=== PATIENT | female | born 1935 | race Hispanic/Latino ===

== ENCOUNTER 2017-12-14 10:22 | Day surgery (SDC) | payer MEDICARE, MEDICAID ==
[~2017-12-14] VITALS: Ht 157.5 cm; Wt 89.4 kg
[~2017-12-14 10:22] MED LIST: ADVIL200 MG OR; AMLODIPINE10 MG PO; BACTRIM DS1 TAB PO; BENAZEPRIL10 MG PO; OXYCODONE/ACETA1 TAB OR; VIT B-COMPLX100 MG PO
[2017-12-14 12:29] VITALS: BP 163/84
== END 2017-12-14 12:43 | disposition home or self-care (01) ==
LOC: ENDO 10:22
PROVIDERS: ATTEND Internal Medicine Gastroenterology
PROC: 0DBK8ZX Excision of Ascending Colon, Via Natural or Artificial Opening Endoscopic, Diagnostic (ICD-10-PCS; principal; 2017-12-14)
PROC: 0DBN8ZX Excision of Sigmoid Colon, Via Natural or Artificial Opening Endoscopic, Diagnostic (ICD-10-PCS; 2017-12-14)
DX: K57.31 Diverticulosis of large intestine without perforation or abscess with bleeding (principal); K64.4 Residual hemorrhoidal skin tags; K64.8 Other hemorrhoids; K63.5 Polyp of colon; D12.2 Benign neoplasm of ascending colon; I10 Essential (primary) hypertension; Z86.010 Personal history of colon polyps

== ENCOUNTER 2018-12-29 17:43 | Emergency (ER) | payer MEDICARE, MEDICAID ==
[~2018-12-29] VITALS: Ht 157.5 cm; Wt 86.0 kg
[2018-12-29] MEDS ORDERED: LISINOPRIL20 MG PO (18:02)
[2018-12-29] MEDS ORDERED: ASPIRIN 8181 MG PO (18:03)
[2018-12-29] MEDS ORDERED: AMLODIPINE5 MG PO (18:04)
[2018-12-29] MEDS ORDERED: ATORVASTATIN CA40 MG PO (18:04)
[2018-12-29 19:20] LABS: HEMATOCRIT 34.4 % (37.0-47.0); IMMATURE GRANULOCYTES 0.4 % (0.0-5.0); MEAN CORPUSCULAR HGB 31.7 pG CALC (26.0-32.0); NEUT# 3.76 thou/uL (2.00-7.15); RED BLOOD COUNT 3.47 mill/uL (4.20-5.60); RED CELL DISTRI WIDTH 13.2 % (11.5-15.5)
[2018-12-29 19:26] LABS: MEAN CELL VOLUME 99.1 fL CALC (80.0-100.0)
[2018-12-29 19:33] LABS: ALKALINE PHOSPHATASE 88 u/l (38-126); BUN 21 mg/dL (8-23); BUN/CREATININE RATIO 29 (12-20 (CALC)); CARBON DIOXIDE 24 mmol/l (22-30); CHLORIDE 108 mmol/l (95-108); CREATININE 0.7 mg/dL (0.5-1.0); GFR > 60 ML/MIN (>=60 (CALC)); GFR FOR AFR.AMER. > 60 ML/MIN (>=60 (CALC)); SGOT/AST 32 u/l (9-36); SODIUM 139 mmol/l (137-146)
[2018-12-29 19:35] LABS: ALBUMIN 3.6 g/dL (3.2-5.0); ANION GAP 11 (6-22 (CALC)); BILIRUBIN, TOTAL 0.8 mg/dL (0.0-1.4); POTASSIUM 4.1 mmol/l (3.5-5.1)
[2018-12-29 19:53] LABS: URINE BILIRUBIN - DIPSTICK NEGATIVE (NEGATIVE); URINE BLOOD DIPSTICK NEGATIVE (NEGATIVE); URINE COLOR YELLOW; URINE GLUCOSE - DIPSTICK NEGATIVE (NEGATIVE); URINE KETONE NEGATIVE (NEGATIVE); URINE LEUK ESTERASE NEGATIVE (NEGATIVE); URINE NITRITE - DIPSTICK NEGATIVE (Negative); URINE PROTEIN - DIPSTICK NEGATIVE (NEG-TRACE)
[2018-12-29 21:40] VITALS: BP 131/65
== END 2018-12-29 21:43 | disposition home or self-care (01) ==
LOC: ED 17:43
PROVIDERS: Emergency Medicine
DX: S00.83XA Contusion of other part of head, initial encounter (principal); I10 Essential (primary) hypertension; W18.39XA Other fall on same level, initial encounter; Y93.E1 Activity, personal bathing and showering; Y92.002 Bathroom of unspecified non-institutional (private) residence as the place of occurrence of the external cause; Z86.73 Personal history of transient ischemic attack (TIA), and cerebral infarction without residual deficits

== ENCOUNTER 2019-01-07 07:10 | Observation (INO) | payer MEDICARE, MEDICAID ==
[~2019-01-07] VITALS: Ht 157.5 cm; Wt 83.5 kg
[~2019-01-07 07:10] MED LIST changes: +AMLODIPINE5 MG PO; +ASPIRIN 8181 MG PO; +ATORVASTATIN CA40 MG PO; +LISINOPRIL20 MG PO
--- NOTE | 2019-01-07 07:12 | NUR ---
PT TAKEN TO ROOM PER W/C.
--- NOTE | 2019-01-07 07:12 | NUR ---
PT TO ROOM VIA WC. ABLE TO STAND AT BEDSIDE AND TRANSFER TO BSC THEN STRETCHER W/SBA. URINE SPECIMEN COLLECTED UNABLE TO COLLECT STOOL AT THIS TIME.
[2019-01-07 07:52] LABS: HEMATOCRIT 39.7 % (37.0-47.0); HEMOGLOBIN 12.1 g/dl (12.0-16.0); IMMATURE GRANULOCYTES 0.4 % (0.0-5.0); MEAN CELL VOLUME 103.4 fL CALC (80.0-100.0); MEAN CORPUSCULAR HGB 31.5 pG CALC (26.0-32.0); MEAN CORPUSCULAR HGB CONC 30.5 g/L CALC (32.0-36.0); NEUT# 6.49 thou/uL (2.00-7.15); RED BLOOD COUNT 3.84 mill/uL (4.20-5.60); RED CELL DISTRI WIDTH 13.5 % (11.5-15.5)
[2019-01-07 07:54] LABS: URINE BILIRUBIN - DIPSTICK NEGATIVE (NEGATIVE); URINE BLOOD DIPSTICK TRACE-INTACT (NEGATIVE); URINE COLOR YELLOW; URINE GLUCOSE - DIPSTICK NEGATIVE (NEGATIVE); URINE KETONE NEGATIVE (NEGATIVE); URINE LEUK ESTERASE TRACE (NEGATIVE); URINE PH 5.5 (4.5-8.0); URINE PROTEIN - DIPSTICK 30 mg/dL (NEG-TRACE); URINE UROBILINOGEN - DIPSTICK 0.2 E.U./dL (0.2)
[2019-01-07 07:57] LABS: URINE NITRITE - DIPSTICK POSITIVE (Negative)
[2019-01-07 07:58] LABS: URINE BACTERIA MODERATE hpf; URINE EPITHELIAL CELLS FEW EPI/hpf (0-FEW); URINE RBC 0-2 RBC/hpf (0-5); URINE SQUAMOUS EPITHELIAL CELL FEW EPI/hpf (0-FEW)
[2019-01-07 08:14] LABS: ALBUMIN 4.3 g/dL (3.2-5.0); BILIRUBIN, TOTAL 0.7 mg/dL (0.0-1.4); POTASSIUM 3.3 mmol/l (3.5-5.1)
--- NOTE | 2019-01-07 08:17 | NUR ---
PT SLEEPING ON STRETCHER RESPONDS TO TACTILE STIMULI. A&OX3. DAUGHTER AT BEDSIDE ADVISED OF CONTINUED WAIT TIME.
--- NOTE | 2019-01-07 09:08 | NUR ---
PT MEDICATED PO FOR LOW POTASSIUM. IV ABT INFUSING. PT AND DAUGHTER ADVISED OF CURRENT POC. VSS.
--- NOTE | 2019-01-07 10:05 | NUR ---
pt to and from [facility]. stool specimen collected
--- NOTE | 2019-01-07 10:25 | NUR ---
hospitalist contacted for admission orders.
--- NOTE | 2019-01-07 10:47 | NUR ---
REPORT PROVIDED TO PATRICIA KINGSLEY, ON [employer]. PT TO PulsityR VIA STRETCHER IV SITE HEALTHY. VSS.
[2019-01-07 11:10] VITALS: BP 121/64
--- NOTE | 2019-01-07 11:27 | NUR ---
REPORT RECEIVED FROM GIORGIO IN ED, PT ARRIVED ON UNIT VIA STRETCHER WITH ED STAFF @ 1054, TRANSFERRED WITH MAX ASSIST TO BED AND WAS UNABLE TO STAND ON STANDING SCALE, ALERT AND ORIENTED X 2, ORIENTED TO ROOM AND CALL RAHMAN, FACIAL BRUISING AND HEMATOMA TO LEFT FOREHEAD OBSERVED, BRUISING ALSO TO RIGHT ABDOMEN AND RIGHT LOWER BACK, SETTLED IN BED, FAMILY MEMBER IN ROOM, WILL CONTINUE TO MONITOR.
[2019-01-07 15:00] VITALS: BP 135/80
--- NOTE | 2019-01-07 15:15 | NUR ---
HAS BEEN SLEEPING SINCE 1110 THIS AND JUST AWOKE, ORAL LIQUIDS OFFERED, BED IN LOWEST POSITION AND ALARM IN PLACE, WILL CONTINUE TO MONITOR.
[2019-01-07] MEDS ORDERED: PROTONIX40 M2 PO (18:52)
--- NOTE | 2019-01-07 19:00 | NUR ---
RECEIVED REPORT FROM NURSE TEETEE PATIENT RESTING IN BED, FAMILY IN ROOM, C/O GEN BODY PAIN, EVEN UNLABORED BREATHING CALL LIGHTA T REACH
[2019-01-07 19:28] VITALS: BP 146/77
--- NOTE | 2019-01-07 20:00 | NUR ---
PATIENT ALERT AND ORIENTED ABLE TO MAKE NEEDS KNOWN, WITH AN ONGOING IVF OF LR @ 100CC/HR INFUSING WELL ON LAC, PATIENT IS A MAX ASSIST, NOTED TO HAVE HEMATOMA ON FOREHEAD, FACIAL BRUISING, AND BRUISING ON ABDOMEN, TEMP 100f, WILL MEDICATE
--- NOTE | 2019-01-07 20:13 | NUR ---
CALLED DR. CASTILLO ABOUT TEMP 100f AND PAIN, ORDER PUT IN PLACE.
--- NOTE | 2019-01-08 | NUR ---
PATIENT RESTING IN BED, EYES CLOSED NO DISCOMFORTS MOTED AT THIS TIME, WILL CONTINUE TO MONITOR.
[2019-01-08 04:16] VITALS: BP 157/76
[2019-01-08 05:20] LABS: HEMATOCRIT 34.6 % (37.0-47.0); IMMATURE GRANULOCYTES 0.4 % (0.0-5.0); MEAN CELL VOLUME 101.2 fL CALC (80.0-100.0); MEAN CORPUSCULAR HGB 32.2 pG CALC (26.0-32.0); MEAN CORPUSCULAR HGB CONC 31.8 g/L CALC (32.0-36.0); NEUT# 3.44 thou/uL (2.00-7.15); RED BLOOD COUNT 3.42 mill/uL (4.20-5.60); RED CELL DISTRI WIDTH 13.4 % (11.5-15.5)
--- NOTE | 2019-01-08 05:25 | NUR ---
PATIENT RESTING IN BED, NO DISCOMFORTS NOTED AT THIS TIME, EVEN UNLABORED BREATHING CALL LIGHT AT REACH.
[2019-01-08 05:37] LABS: ALKALINE PHOSPHATASE 55 u/l (38-126); AMYLASE 36 u/l (30-110); ANION GAP 10 (6-22 (CALC)); BILIRUBIN, TOTAL 0.5 mg/dL (0.0-1.4); BUN 19 mg/dL (8-23); CARBON DIOXIDE 18 mmol/l (22-30); CHLORIDE 118 mmol/l (95-108); LIPASE 191 u/l (23-300); MAGNESIUM 1.8 mg/dL (1.6-2.3); POTASSIUM 3.6 mmol/l (3.5-5.1); SGOT/AST 23 u/l (9-36); SODIUM 142 mmol/l (137-146)
[2019-01-08 05:39] LABS: ALBUMIN 2.9 g/dL (3.2-5.0); BUN/CREATININE RATIO 27 (12-20 (CALC)); CREATININE 0.7 mg/dL (0.5-1.0); GFR > 60 ML/MIN (>=60 (CALC)); GFR FOR AFR.AMER. > 60 ML/MIN (>=60 (CALC)); TOTAL PROTEIN 5.9 g/dL (6.3-8.2)
[2019-01-08 06:07] VITALS: BP 154/82
[2019-01-08 08:30] VITALS: BP 154/80
--- NOTE | 2019-01-08 08:32 | NUR ---
ASSESSMENT DONE. PT IS A&O X2. IVF INFSUING WELL. MEDICATED PT WITH TYLENOL FOR PAIN IN RIGHT KNEE SEE EMAR. PT DENIES ANY OTHER NEEDS.DAUGHTER IN ROOM STATED THAT PT FELL YESTERDAY AT HOME. PT STATED SHE DID NOT HURT HER SELF. SAFETY PRECAUTIONS REINFORCED AND CALL LIGHT IN REACH.
--- NOTE | 2019-01-08 11:08 | NUR ---
DAUGHTER IN ROOM. PT IS RESTING IN BED. EDUCATED ON THE CONTACT PRECAUTIONS AND HAND WASHING. PT DENIES NEEDS AT THIS TIME. CALL LIGHT IN REACH.
--- NOTE | 2019-01-08 11:58 | NUR ---
PT WAS SEEN FOR FUNCTIONAL ACTIVITY X 20 MINS. SHE WAS SEEN RESTIN IN SUPINE WITH DAUGHTER IN THE ROOM. MOD A ON SUPINE TO SIT WITH CONSTANT VERBAL CUES ON HAND PLACEMENT. INDEP ON SITTING WITH SUPPORT USING B HANDS. PT EXPRESSED HER FEAR OF FALLING ONCE SHE STARTS WALKING. REPORTS THAT SHE HAS HAD A BAD FALL AFTER BEING DISCHARGED FROM THE REHAB IN [place]. SHE WAS INSTRUCTED TO PERFORM QTO-MT-AALFW TOLERATED (ELISA. 10 REPS) WITH MIN A AND VC ON HAND PLACEMENT. NOTED RETROPULSION IN STATIC STANDING EVEN WITH A WALKER. SHE REPORTS WEAKNESS AND PAIN ON R KNEE AGGRAVATED BY WB PS 8/10. PT WAS ENCOURAGED TO AMBULATE, HOWEVER WAS OVERWHELMED AND ANXIOUS TO DO SO. INSTEAD, SHE PERFORMED MARCHES IN PLACE WHILE HOLDING ONTO WALKER, WITH THERAPIST PROVIDING MIN A FOR STABILITY. PT WAS CONSTANTLY INSTRUCTED ON PROPER STANDING POSTURE SHE DISPLAYED FLEXED POSTURE. AM-PAC SCORE WAS 9 OR 81.38%= CL (CURRENT G-CODE), LTAC. CL
--- NOTE | 2019-01-08 14:46 | NUR ---
PT IS A&O X2 BUT FORGETFUL AT TIMES. PT STATED PAIN IN RIGHT KNEE IS 9/10. MEDICATED PT WITH TYLENOL SEE EMAR. PT DENIES ANY OTHER NEEDS AT THIS TIME. CALL LIGHT IN REACH.
--- NOTE | 2019-01-08 16:05 | NUR ---
PT IS RESTING IN BED WITH NO S/S OF DISTRESS NOTED. CALL LIGHT IN REACH.
[2019-01-08 16:10] VITALS: BP 141/74
--- NOTE | 2019-01-08 19:05 | NUR ---
REPORT FROM MARIANO GOMEZ. PT NOTED TO BED RESTING IN BED AT THIS TIME. ALERT AND ORIENTED. PT TEARFUL AND C/O PAIN IN RIGHT KNEE, STATING TYLENOL NOT VERY EFFECTIVE, REPOSITIONED AT THIS TIME, RETAIL SERVICE SPECIALIST WILL CONTACT PHYSICIAN FOR STRONGER PAIN MEDICATION. DISCUSSED POC AND SAFETY PRECAUTIONS. PT VERBALIZED UNDERSTANDING. IV SITE APPEARS HEALTHY. CALL LIGHT WITHIN REACH. WILL CONTINUE TO MONITOR.
--- NOTE | 2019-01-08 19:21 | NUR ---
PHYSICIAN NOTIFIED OF PT PAIN. MANAGER TALENT MANAGEMENT RECEIVED NEW ORDERS AT THIS TIME. WILL MEDICATE ONCE MEDICATION PROFILED BY PHARMACY.
[2019-01-08 19:24] VITALS: BP 165/85
--- NOTE | 2019-01-08 23:36 | NUR ---
PT RESTING IN BED WITH EYES CLOSED. NO APPARENT DISTRESS NOTED. CALL LIGHT WITHIN REACH. WILL CONTINUE TO MONITOR.
[2019-01-09 04:15] VITALS: BP 146/75
--- NOTE | 2019-01-09 04:15 | NUR ---
PT INCONTINENT OF STOOL. PERICARE PROVIDED AND LINENS CHANGED. PT TOLERATED WELL BUT TEARFUL. PT DENIES ANY PAIN OR DISCOMFORT AT THIS TIME. CALL LIGHT WITHIN REACH. WILL CONTINUE TO MONITOR.
[2019-01-09 05:38] LABS: ALBUMIN 2.8 g/dL (3.2-5.0); ALKALINE PHOSPHATASE 56 u/l (38-126); AMYLASE 37 u/l (30-110); ANION GAP 11 (6-22 (CALC)); BILIRUBIN, TOTAL 0.7 mg/dL (0.0-1.4); BUN 10 mg/dL (8-23); BUN/CREATININE RATIO 18 (12-20 (CALC)); CARBON DIOXIDE 19 mmol/l (22-30); CHLORIDE 114 mmol/l (95-108); CREATININE 0.6 mg/dL (0.5-1.0); GFR > 60 ML/MIN (>=60 (CALC)); GFR FOR AFR.AMER. > 60 ML/MIN (>=60 (CALC)); LIPASE 126 u/l (23-300); MAGNESIUM 1.6 mg/dL (1.6-2.3); POTASSIUM 3.4 mmol/l (3.5-5.1); SGOT/AST 21 u/l (9-36); SODIUM 141 mmol/l (137-146); TOTAL PROTEIN 5.8 g/dL (6.3-8.2)
[2019-01-09 05:46] LABS: HEMATOCRIT 34.1 % (37.0-47.0); IMMATURE GRANULOCYTES 0.2 % (0.0-5.0); MEAN CELL VOLUME 98.3 fL CALC (80.0-100.0); MEAN CORPUSCULAR HGB 31.7 pG CALC (26.0-32.0); MEAN CORPUSCULAR HGB CONC 32.3 g/L CALC (32.0-36.0); PLATELET COUNT 131 thou/uL (130-400); RED BLOOD COUNT 3.47 mill/uL (4.20-5.60); RED CELL DISTRI WIDTH 13.1 % (11.5-15.5)
[2019-01-09 06:34] LABS: MANUAL DIFFERENTIAL YES
[2019-01-09 06:35] LABS: OTHER CELL TYPE 2
[2019-01-09 08:00] VITALS: BP 171/84
--- NOTE | 2019-01-09 08:00 | NUR ---
ASSESSMENT IS COMPLETED: IV SITE IS FREE FROM REDNESS OR EDEMA. HR IS REG,PULSES ARE STRONG X4, ABD IS SOFT WITH ACTIVE BS. BREATH SOUNDS ARE CLEAR.,CONTINUE TO OBSERVE AND MONITOR.
--- NOTE | 2019-01-09 08:10 | NUR ---
pt transported to have an us completed via wc with staff.
--- NOTE | 2019-01-09 08:40 | NUR ---
pt returned from having us completed
--- NOTE | 2019-01-09 12:30 | NUR ---
PT IS RELAXING IN BED WITH NO DISTRESS NOTED. IV SITE IS FREE FROM RENDESS OR EDEMA.
[2019-01-09 16:00] VITALS: BP 147/73
--- NOTE | 2019-01-09 17:05 | NUR ---
The patient is emotionally labile. Family is not in room at this time. She is able to work with us on transfers and even ambualted about 12 feet with vitals stable. She has a severely arthritic right knee that prevents her from full weight bearing on that side. She would do well at [facility] and her Am Pac score reflects this.
--- NOTE | 2019-01-09 17:30 | NUR ---
PLACED CONSULTATION FOR REGARDING GALLSTONES. CALLED AT [phone]. GAVE HIM THE ROOM NUMBER, AND WHY SHE IS HERE, AND WHAT THE CONSULTATION WAS FOR. HE SAID THANK YOU FOR LETTING HIM KNOW ABOUT THE PATIENTS.
--- NOTE | 2019-01-09 17:55 | NUR ---
NOTIFIED RE: CONSULTS. WILL HAVE PT NPO AFTER MIDNIGHT.
--- NOTE | 2019-01-09 19:03 | NUR ---
REPORT FROM ORLIN TAPIA. PT RESTING IN BED. ALERT WITH SOME CONFUSION NOTED. NO DISTRESS NOTED. PT DENIES ANY PAIN OR DISCOMFORT. DISCUSSED POC. PT VERBALIZED UNDERSTANDING, WILL REINFORCE NEEDED. CALL LIGHT WITHIN REACH. WILL CONTINUE TO MONITOR.
[2019-01-09 19:10] VITALS: BP 136/80
--- NOTE | 2019-01-09 23:15 | NUR ---
PT RESTING IN BED WITH EYES CLOSED. NO DISTRESS NOTED. IV FLUIDS INFUSING WITHOUT DIFFICULTY. CALL LIGHT WITHIN REACH. WILL CONTINUE TO MONITOR.
--- NOTE | 2019-01-10 02:15 | NUR ---
NEW BAG OF FLUIDS HUNG AT THIS TIME. PT RESTING IN BED WITH EYES CLOSED. NO DISTRESS NOTED. CALL LIGHT WITHIN REACH.
--- NOTE | 2019-01-10 03:43 | NUR ---
PT INCONTINENT OF BLADDER. PARTIAL BED BATH PROVIDED AND LINEN CHANGE AT THIS TIME. PT DENIES ANY OTHER WANTS OR NEEDS. CALL LIGHT WITHIN REACH. WILL CONTINUE TO MONITOR.
[2019-01-10 04:12] VITALS: BP 148/78
--- NOTE | 2019-01-10 04:35 | NUR ---
OXYGEN SYSTEM TESTER IN ROOM OBTAINING LABS.
[2019-01-10 05:09] LABS: HEMOGLOBIN 10.6 g/dl (12.0-16.0); IMMATURE GRANULOCYTES 0.3 % (0.0-5.0); MEAN CELL VOLUME 96.8 fL CALC (80.0-100.0); MEAN CORPUSCULAR HGB 31.1 pG CALC (26.0-32.0); MEAN CORPUSCULAR HGB CONC 32.1 g/L CALC (32.0-36.0); PLATELET COUNT 139 thou/uL (130-400); RED BLOOD COUNT 3.41 mill/uL (4.20-5.60); RED CELL DISTRI WIDTH 12.7 % (11.5-15.5)
[2019-01-10 05:33] LABS: ALBUMIN 2.8 g/dL (3.2-5.0); ALKALINE PHOSPHATASE 59 u/l (38-126); AMYLASE 35 u/l (30-110); BILIRUBIN, TOTAL 0.6 mg/dL (0.0-1.4); BUN 9 mg/dL (8-23); BUN/CREATININE RATIO 14 (12-20 (CALC)); CHLORIDE 109 mmol/l (95-108); CREATININE 0.6 mg/dL (0.5-1.0); GFR > 60 ML/MIN (>=60 (CALC)); GFR FOR AFR.AMER. > 60 ML/MIN (>=60 (CALC)); LIPASE 137 u/l (23-300); MAGNESIUM 1.6 mg/dL (1.6-2.3); POTASSIUM 3.2 mmol/l (3.5-5.1); SGOT/AST 18 u/l (9-36); SODIUM 142 mmol/l (137-146); TOTAL PROTEIN 5.7 g/dL (6.3-8.2)
[2019-01-10 05:48] LABS: ANION GAP 11 (6-22 (CALC)); CARBON DIOXIDE 25 mmol/l (22-30)
--- NOTE | 2019-01-10 06:01 | NUR ---
PT INCONTINENT OF BLADDER. PT UPSET AND CRYING. PT CONFUSED STATES STAFF NOT IN TO SEE HER ALL NIGHT, THAT SHE IS COLD AND WET AND HAS BEEN WET ALL NIGHT. PT REORIENTED. DORIE-CARE PROVIDED AND LINENS CHANGED. CALL LIGHT WITHIN REACH.
[2019-01-10 06:02] LABS: MANUAL DIFFERENTIAL YES; OTHER CELL TYPE 6
[2019-01-10 08:00] VITALS: BP 183/77
--- NOTE | 2019-01-10 08:00 | NUR ---
ASSESSMENT IS COMPLTED: IV SITE IS FREE FROM REDNESS OR EDEMA. HR IS REG,PULSES ARE STRONG X4, ABD IS SOFT WITH ACTIVE BS. BREATH SOUNDS ARE CLEAR,BILATERALLY, CONTINUE TO OSBERVE AND MONITOR.
--- NOTE | 2019-01-10 10:00 | NUR ---
PT'S DAUGHTER RAÚL CALLED TO INQUIRE IF THE MD HAS COME IN YET. INFORMED THAT NOT YET.
--- NOTE | 2019-01-10 10:47 | NUR ---
PT WAS SEEN FOR GT THIS MORNING. SHE PERFORMED BETTER TODAY THAN THE LAST TIME I SAW HER 2 DAYS AGO. OVERALL, HER AMPAC SCORE INCREASED HOWEVER STILL WILL BENEFIT FROM SNF/IRF FOR CONDITIONING AND BALANCE TRAINING. SHE PERFORMED SUPINE TO SIT AND SIT TO STAND WITH MIN A. THEN AMBULATED IN THE ROOM ~10 FT. X 2 WITH RW AND CGA. PT CONSTANTLY C/O BEING THIRSTY- ON NPO ORDER. FINISHED AMB AND PROVIDED WITH MOD A TO BE REPORSITIONED BACK IN THE BED. CALL RAHMAN WITHIN REACH.
--- NOTE | 2019-01-10 12:00 | NUR ---
PT IS RELAXING IN BED WITH NO DISTRESS NOTED. IV SITE IS FREE FROM REDNESS OR EDEMA.
--- NOTE | 2019-01-10 12:38 | NUR ---
REHAB CALLED. [facility] FOR CONSULANT.
[2019-01-10] MEDS ORDERED: CIPROFLOXACN500 MG PO (14:30)
[2019-01-10 16:57] VITALS: BP 136/83
--- NOTE | 2019-01-10 17:00 | NUR ---
IV SITE DISCONTINUED CATHETER INTACT
--- NOTE | 2019-01-10 17:40 | NUR ---
CALLED AND SPOKE WITH STAFF AT [facility]. GAVE REPORT.IV SITE WAS DISCONTINEUD CATHETER INTACT NO REDNESS OR EDEMA. FAMILY TAKING PT . CONTINUE TO OBSERVE AND MONITOR.
--- NOTE | 2019-01-10 17:44 | NUR ---
SPOKE WITH LYNN ESTEVEZ INQUIRING WHEN SHE IS COMING. INFORMED THAT DAUGHTER IN THE ROOM IS GETTING READY TO LEAVE NOW.
--- NOTE | 2019-01-10 17:45 | NUR ---
Discharge instructions given. Patient verbalizes understanding of same. Discharged in stable condition via Wheelchair to FAMILY CAR with FAMILY. All belongings sent with pt. TO REHAB;
== END 2019-01-10 17:30 ==
LOC: ED 07:10 → ED-I 09:37 → ED 10:00 → MS2 10:01
PROVIDERS: Emergency Medicine; ADMIT Internal Medicine Nephrology; ATTEND Internal Medicine Nephrology
DX: A08.0 Rotaviral enteritis (principal); N17.9 Acute kidney failure, unspecified; E86.0 Dehydration; E87.2 Acidosis; I10 Essential (primary) hypertension; N39.0 Urinary tract infection, site not specified; E87.6 Hypokalemia; I69.851 Hemiplegia and hemiparesis following other cerebrovascular disease affecting right dominant side; D64.9 Anemia, unspecified; I95.9 Hypotension, unspecified; K80.20 Calculus of gallbladder without cholecystitis without obstruction; B96.20 Unspecified Escherichia coli [E. coli] as the cause of diseases classified elsewhere

== ENCOUNTER 2019-03-17 16:25 | Inpatient (IN) | payer MEDICARE, MEDICAID ==
[~2019-03-17] VITALS: Ht 157.5 cm; Wt 87.0 kg
[~2019-03-17 16:25] MED LIST changes: +CIPROFLOXACN500 MG PO; +PROTONIX40 M2 PO
--- NOTE | 2019-03-17 16:25 | NUR ---
PT TO ROOM AWAKE ,ALERT AND ORIENTED X3.
[2019-03-17 17:06] LABS: HEMATOCRIT 35.7 % (37.0-47.0); HEMOGLOBIN 11.1 g/dl (12.0-16.0); IMMATURE GRANULOCYTES 0.5 % (0.0-5.0); MEAN CELL VOLUME 96.5 fL CALC (80.0-100.0); MEAN CORPUSCULAR HGB CONC 31.1 g/L CALC (32.0-36.0); NEUT# 4.06 thou/uL (2.00-7.15); RED BLOOD COUNT 3.7 mill/uL (4.20-5.60); RED CELL DISTRI WIDTH 14.1 % (11.5-15.5)
--- NOTE | 2019-03-17 17:15 | NUR ---
PATIENT CLEANED OF INCONRINENCE, X2 STAFF ASSIST. DORIE AREA NOTED TO BE RED, URINE SAMPLE OBTAINED VIA STRAIGHT CATH, CLOUDY URINE OUT. CLEAN PADS PLACED UNDER PATIENT.
[2019-03-17 17:19] LABS: BUN 26 mg/dL (8-23); BUN/CREATININE RATIO 30 (12-20 (CALC)); CARBON DIOXIDE 21 mmol/l (22-30); CHLORIDE 112 mmol/l (95-108); CREATININE 0.9 mg/dL (0.5-1.0); GFR 60 ML/MIN (>=60 (CALC)); GFR FOR AFR.AMER. > 60 ML/MIN (>=60 (CALC)); SGOT/AST 18 u/l (9-36); SODIUM 142 mmol/l (137-146); TOTAL PROTEIN 6.8 g/dL (6.3-8.2)
[2019-03-17 17:21] LABS: ALBUMIN 3.4 g/dL (3.2-5.0); ALKALINE PHOSPHATASE 108 u/l (38-126); ANION GAP 13 (6-22 (CALC)); BILIRUBIN, TOTAL 1.5 mg/dL (0.0-1.4); POTASSIUM 4.2 mmol/l (3.5-5.1)
[2019-03-17 17:35] LABS: URINE BILIRUBIN - DIPSTICK NEGATIVE (NEGATIVE); URINE BLOOD DIPSTICK LARGE (NEGATIVE); URINE COLOR YELLOW; URINE GLUCOSE - DIPSTICK NEGATIVE (NEGATIVE); URINE KETONE NEGATIVE (NEGATIVE); URINE NITRITE - DIPSTICK NEGATIVE (Negative); URINE PH 5.5 (4.5-8.0); URINE PROTEIN - DIPSTICK 30 mg/dL (NEG-TRACE)
--- NOTE | 2019-03-17 17:50 | NUR ---
AND DANNIELLE HACKETT DISCUSSING PLAN OF CARE, PLAN TO ONLY GIVE 1000 ML OF NORMAL SALINE OUT OF 2100 ML FLUID BOLUS RECOMMENDED BY SEVERE SEPSIS DUE TO PATIENT HAVE NO HYPOTENSION.
[2019-03-17 17:52] LABS: URINE LEUK ESTERASE MODERATE (NEGATIVE)
--- NOTE | 2019-03-17 17:55 | NUR ---
AT BEDSIDE TO DISCUSS RESULTS AND PLAN OF CARE.
[2019-03-17 18:10] LABS: URINE BACTERIA MODERATE hpf; URINE SQUAMOUS EPITHELIAL CELL FEW EPI/hpf (0-FEW); URINE WBC 50-100 WBC/hpf (0-5)
[2019-03-17] MEDS ORDERED: K-DUR/KLOR-CON20 MEQ PO (18:11)
[2019-03-17] MEDS ORDERED: MELOXICAM7.5 MG PO (18:11)
--- NOTE | 2019-03-17 18:50 | NUR ---
REPORT CALLED TO PATRICIA BOSCH.
--- NOTE | 2019-03-17 19:00 | NUR ---
PT. ARRIVED VIA STRETCHER ACCOMPANIED BY ER NURSE, PATRICIA RADER. RENEWALS SPECIALIST IN AT BEDSIDE ASSISTING PT. WILL BE IN TO DO ASSESSMENT SHORTLY.
--- NOTE | 2019-03-17 19:00 | NUR ---
PATIENT TRANSPORTED TO [facility] VIA STRETCHER WITH TELE IN PLACE. PATRICIA BOSCH INFORMED OF PATIENT ARRIVAL TO ROOM. BELONGINGS SENT HOME WITH DAUGHTER.
[2019-03-17 19:11] VITALS: BP 118/68
--- NOTE | 2019-03-17 19:45 | NUR ---
ASSESSMENT COMPLETED. NO DISTRESS NOTED. FAMILY IS IN AT BEDSIDE. TELEMETRY IN PLACE. IV SITES PATENT X2 AND ORDERED MEDS GIVEN. PT. IS A/A/O X3, BUT FAMILY REPORTS SHE CAN GET FORGETFUL AND IMAGINE THINGS AT TIMES, PLACED BED ALARM FOR SAFETY PRECAUTIONS AT THIS TIME. PT. C/O RIGHT KNEE PAIN R/T ATHRITIS, MEDICATED WITH ORDERED TYLENOL, WILL REASSESS. PATCH NOTED TO RIGHT KNEE PER FAMILY THIS IS ORDERED WELL FOR ARTHRITIS. PT. HAS RIGHT SIDED WEAKNESS R/T HX OF CVA. PT. IS INSTRUCTED TO CALL FOR ALL OOB NEEDS; CALL LIGHT IS IN REACH. WILL CONTINUE TO MONITOR.
[2019-03-17 23:50] VITALS: BP 91/59
--- NOTE | 2019-03-18 00:15 | NUR ---
PT. RESTING IN BED WITH EYES CLOSED; NO DISTRESS NOTED. RESP. EVEN AND UNLABORED; CALL LIGHT IS IN REACH. BED ALARM ON.
--- NOTE | 2019-03-18 03:18 | NUR ---
PT. RESTING IN BED WITH EYES OPEN. NO DISTRESS NOTED; DENIES NEEDS/PAIN. ENCOURAGED TO CALL FOR ANY NEEDS. CALL LIGHT IS IN REACH. WILL CONTINUE TO MONITOR.
--- NOTE | 2019-03-18 04:00 | NUR ---
ASSISTED ON AND OFF OF BSC WI MAX ASST AND WALKER. PT. UNSTEADY. DORIE CARE GIVEN AND MESCH PANTIES AND PAD PLACED. EMS SITE REMOVED FROM LAC, CATHTER TIP INTACT AND NO BLEEDING NOTED; SECURED GAUZE. BED ALARM RESET. CALL LIGHT IS IN REACH. PO FLUIDS OFFERED.
[2019-03-18 04:29] VITALS: BP 103/53
[2019-03-18 05:41] LABS: HEMOGLOBIN 10.4 g/dl (12.0-16.0); MEAN CELL VOLUME 98.2 fL CALC (80.0-100.0); MEAN CORPUSCULAR HGB CONC 31.5 g/L CALC (32.0-36.0); RED BLOOD COUNT 3.36 mill/uL (4.20-5.60); RED CELL DISTRI WIDTH 14.3 % (11.5-15.5)
--- NOTE | 2019-03-18 05:53 | NUR ---
RESTING IN BED WITH EYES CLOSED. RESP. EVEN AND UNLABORED.
[2019-03-18 06:19] LABS: ANION GAP 10 (6-22 (CALC)); BUN 26 mg/dL (8-23); BUN/CREATININE RATIO 28 (12-20 (CALC)); CARBON DIOXIDE 22 mmol/l (22-30); CHLORIDE 114 mmol/l (95-108); CREATININE 0.9 mg/dL (0.5-1.0); GFR 60 ML/MIN (>=60 (CALC)); GFR FOR AFR.AMER. > 60 ML/MIN (>=60 (CALC)); SODIUM 142 mmol/l (137-146)
--- NOTE | 2019-03-18 07:50 | NUR ---
PT ALERT AND ORIENTED VERY PLEASANT DENIES ANY NEEDS AT THIS TIME. OOB IN WC ADLS WITH ASSIST FROM STAFF CONTINUES ON IV THERAPY NO ACUTE DISTRESS TOLERATING WELL. APPETITE FAIR.
[2019-03-18 08:45] VITALS: BP 96/51
[2019-03-18 11:14] VITALS: BP 121/60
--- NOTE | 2019-03-18 12:30 | NUR ---
PT RESTING IN BED. LUNCH INTAKE GOOD. DENIES ANY ACUTE DISTRESS CONTINUES ON IV THERAPY TOLERATING WELL ASSIST TO ONE TO BSC. CALL LIGHT WITHIN REACH
[2019-03-18 14:40] VITALS: BP 114/62
--- NOTE | 2019-03-18 17:00 | NUR ---
PT AWAKE RESTING IN BED. ASSESSMENT UNCHANGED. RESP EVEN AND UNLABORED. IV SITE PATENT. OFFERS NO COMPLAINTS. TELE SR. CALL RAHMAN WITHIN REACH.
--- NOTE | 2019-03-18 19:12 | NUR ---
RECEIVED REPORT. PT. IS RESTING IN BED WITH NO DISTRESS NOTED. NO DISTRESS NOTED. CALL LIGHT IS IN REACH.
[2019-03-18 19:19] VITALS: BP 126/54
--- NOTE | 2019-03-18 21:12 | NUR ---
PT. IS RESTING IN BED WITH NO DISTRESS NOTED. ASSESSMENT COMPLETED. IV SITE PATENT AND ORDERED IVF INFUSING WELL. PO FLUIDS OFFERED. SCHED MEDS GIVEN. UPDATED ON POC. REPORTS BM X2 TODAY. BLE EDMEA NOTED AND BOTTOM OF THE BED ELEVATED AND ENCOURAGED TO KEEP ELEVATED. DENIES NEEDS. CALL LIGHT IS IN REACH. WILL CONTINUE TO MONITOR.
--- NOTE | 2019-03-18 22:40 | NUR ---
PT. C/O WANG, MEDICATED WITH ORDERED TYLENOL, WILL REASSESS; PO FLUIDS OFFERED. DENIES FURTHER NEEDS. CALL LIGHT IS IN REACH.
--- NOTE | 2019-03-19 00:03 | NUR ---
RESTTING IN BED WITH EYES CLOSED; RESP. EVEN AND UNLABORED, CALL LIGHT IS IN REACH.
[2019-03-19 00:43] VITALS: BP 130/71
[2019-03-19 03:19] VITALS: BP 118/58
--- NOTE | 2019-03-19 03:55 | NUR ---
PT. RESTING IN BED WITH NO DISTRESS NOTED. RESP. EVEN AND UNLABORED; DENIES PAIN. VOICES NO CONCERNS. CALL LIGHT IS IN REACH.
--- NOTE | 2019-03-19 06:00 | NUR ---
RESTING IN BED WITH EYES CLOSED; NO DISTRESS NOTED; RESP. EVEN AND UNLABORED. CALL LIGHT IS IN REACH.
[2019-03-19 06:11] LABS: HEMATOCRIT 32.8 % (37.0-47.0); HEMOGLOBIN 10.5 g/dl (12.0-16.0); MEAN CORPUSCULAR HGB 31.1 pG CALC (26.0-32.0); RED BLOOD COUNT 3.38 mill/uL (4.20-5.60); RED CELL DISTRI WIDTH 14.6 % (11.5-15.5)
[2019-03-19 06:29] LABS: ANION GAP 8 (6-22 (CALC)); BUN 22 mg/dL (8-23); BUN/CREATININE RATIO 26 (12-20 (CALC)); CARBON DIOXIDE 21 mmol/l (22-30); CHLORIDE 117 mmol/l (95-108); CREATININE 0.8 mg/dL (0.5-1.0); GFR > 60 ML/MIN (>=60 (CALC)); GFR FOR AFR.AMER. > 60 ML/MIN (>=60 (CALC)); POTASSIUM 3.4 mmol/l (3.5-5.1); SODIUM 142 mmol/l (137-146)
--- NOTE | 2019-03-19 07:20 | NUR ---
REPORT RECEIVED FROM DANITZARN;PT RESTING IN SEMI FOWLERS POSITION;INTRODUCED SELF TO PT AND POC DISCUSSED;RESPIRATIONS EVEN AND UNLABORED ON RA;PT DENIES ANY CURRENT PAIN OR DISCOMFORTS;IV FLUIDS INFUSING WITH EASE PER ORDER;ENCOURAGED PT TO CALL FOR ASSISTANCE IF NEEDED;FALL PRECAUTIONS IN PLACE WITH BED IN THE LOWEST POSITION AND CALL LIGHT IN REACH;WILL CONTINUE TO MONITOR
[2019-03-19 08:53] VITALS: BP 146/55
--- NOTE | 2019-03-19 09:50 | NUR ---
PT RESTING ON BEDSIDE COMMODE WHILE KATHARINA CABRERA PROVIDES NEW BED LINENS;VS OBTAINED AND ASSESSMENT COMPLETED;PT A&O X2 WITH FORGETFULNESS NOTED;WILL ATTEMPT TO RE-ORIENT NEEDED;PT REPORTS RT KNEE PAIN RATING 8/10 ON THE PAIN SCALE AND REQUESTS PRN PAIN MEDICATIONS,PT TO BE MEDICATED WITH PRN TYELNOL 650MG PO;RESPIRATIONS EVEN AND UNLABORED ON RA,CLEAR LUNG SOUNDS;ABDOMEN DISTENDED/SOFT ON PALPATION AND ACTIVE IN ALL 4 QUADRANTS;WEAK PEDAL PULSES WITH +2 EDEMA NOTED TO BLE,ENCOURAGED ELEVATION OF BLE;TELE MONITORING IN PLACE;#18G TO RAC INFUSING NS @ 100ML/HR,SITE APPEARS HEALTHY;PT DENIES ANY ADDITIONAL NEEDS AT THIS TIME AND IS ENCOURAGED TO CALL FOR ASSISTANCE IF NEEDED;FALL PRECAUTIONS IN PLACE WITH CALL LIGHT IN REACH;WILL CONTINUE TO MONITOR
--- NOTE | 2019-03-19 11:50 | NUR ---
PT RESTING IN SEMI FOWLERS POSITION, ANXIOUS AND TEARY EYED;PT ENCOURAGED TO EXPRESS CONCERNS/NEEDS, PT REPORTS BEING "SCARED".PT RE-ASSURED AND ALL QUESTIONS ANSWERED AT THIS TIME;PT DENIES ANY CURRENT NEEDS;TELE MONITORING IN PLACE;IV SITE TO RAC PATENT INFUSING NS WITH EASE;PT INSTRUCTED TO CALL FOR ASSISTANCE IF NEEDED;FALL PRECAUTIONS IN PLACE WITH CALL LIGHT IN REACH;WILL CONTINUE TO MONITOR
[2019-03-19 12:00] VITALS: BP 148/73
--- NOTE | 2019-03-19 12:00 | NUR ---
AT BEDSIDE DISCUSSING POC.
--- NOTE | 2019-03-19 12:54 | NUR ---
LAB AT BEDSIDE
[2019-03-19 16:00] VITALS: BP 150/72
--- NOTE | 2019-03-19 16:05 | NUR ---
PT RESTING IN SEMI FOWLERS POSITION;RESPIRATIONS EVEN AND UNLABORED ON RA;PT DENIES ANY CURRENT PAIN OR NEEDS;TELE MONITORING IN PLACE;IV SITE TO RAC PATENT;PT DENIES ANY ADDITIONAL NEEDS AT THIS TIME AND IS ENCOURAGED TO CALL FOR ASSISTANCE IF NEEDED;FALL PRECAUTIONS IN PLACE WITH CALL LIGHT IN REACH;WILL CONTINUE TO MONITOR
--- NOTE | 2019-03-19 17:10 | NUR ---
PT REPORTS RT KNEE PAIN RATING 8/10 ON THE PAIN SCALE AND REQUESTS PAIN MEDICATION, PT MEDICATED WITH PRN TYLENOL 650MG PO AT THIS TIME;WILL MONITOR FOR EFECTIVENESS
[2019-03-19 18:56] VITALS: BP 148/78
--- NOTE | 2019-03-19 19:10 | NUR ---
REPORT RECEIVED FROM REGINA MEZA. PT RESTING IN BED FAMILY AT BEDSIDE. SAFETY PRECAUTIONS IN PLACE, WILL CONTINUE TO MONITOR.
--- NOTE | 2019-03-19 20:35 | NUR ---
PT RESTING IN BED. ALERT AND ORIENTED. RESPIRATIONS EVEN AND UNLABORED ON RA. LUNGS SOUND CLEAR. PEDAL PULSES STRONG. TELE IN PLACE. ASSISTED PT TO THE BSC AND BACK TO BED, PT GATE WEAK AND UNSTEADY. CALL RAHMAN WITHIN REACH WILL CONTINUE TO MONITOR.
[2019-03-20] VITALS (7 sets, daily range): BP systolic 127–161; BP diastolic 72–82
--- NOTE | 2019-03-20 00:03 | NUR ---
PT RESTING IN BED. RESPIRATIONS EVEN AND UNLABORED ON RA. NO S/S OF DISTRESS AT THIS TIME. WILL CONTINUE TO MONITOR.
--- NOTE | 2019-03-20 04:53 | NUR ---
PT RESTING IN BED RESPIRATIONS EVEN AND UNLABORED ON RA. SAFETY PRECAUTIONS IN PLACE. WILL CONTINUE TO MONITOR.
[2019-03-20 05:01] LABS: HEMATOCRIT 33.5 % (37.0-47.0); HEMOGLOBIN 10.7 g/dl (12.0-16.0); MEAN CELL VOLUME 95.4 fL CALC (80.0-100.0); MEAN CORPUSCULAR HGB 30.5 pG CALC (26.0-32.0); MEAN CORPUSCULAR HGB CONC 31.9 g/L CALC (32.0-36.0); RED BLOOD COUNT 3.51 mill/uL (4.20-5.60); RED CELL DISTRI WIDTH 14.2 % (11.5-15.5)
[2019-03-20 05:19] LABS: ANION GAP 10 (6-22 (CALC)); BUN 16 mg/dL (8-23); BUN/CREATININE RATIO 23 (12-20 (CALC)); CARBON DIOXIDE 21 mmol/l (22-30); CHLORIDE 115 mmol/l (95-108); CREATININE 0.7 mg/dL (0.5-1.0); GFR > 60 ML/MIN (>=60 (CALC)); GFR FOR AFR.AMER. > 60 ML/MIN (>=60 (CALC)); POTASSIUM 3.5 mmol/l (3.5-5.1); SODIUM 142 mmol/l (137-146)
--- NOTE | 2019-03-20 07:55 | NUR ---
PT AWAKE RESTING IN BED. PT BATHED. RESP EVEN AND UNLABORED. PT IS ALERT AND ORIENTED X4. LUNGS CLEAR BILAT. ABD SOFT AND NONDISTENDED WITH BOWEL SOUNDS PRESENT. PT DOES HAVE +1 BILAT LOWER EXT EDEMA NOTED. PEDAL PULSES PALPATED BILAT. HEPLOCK PATENT. PT OFFERS NO COMPLAINTS OF DISCOMFORT. TELE SR. PT IS ANXIOUS. FREQUENT ROUNDS MADE. CALL RAHMAN WITHIN REACH.
--- NOTE | 2019-03-20 12:10 | NUR ---
PT RESTING IN RECLINER. RESP EVEN AND UNLABORED. DR RIDDLE SPOKE WITH PT ABOUT POSSIBLE D/C TOMORROW. HEPLOCK PATENT. PT DENIES ANY DISCOMFORT. TELE SR. FREQUENT ROUNDS MADE. CALL RAHMAN WITHIN REACH.
--- NOTE | 2019-03-20 16:14 | NUR ---
PT RESTING IN BED. RESP EVEN AND UNLABORED. ASSESSMENT UNCHANGED. HEPLOCK PATENT. TELE ST HR 103. PT OFFERS NO COMPLAINTS. CALL RAHMAN WITHIN REACH.
--- NOTE | 2019-03-20 18:00 | NUR ---
ASSESSMENT UNCHANGED. OFFERS NO COMPLAINTS. CALL RAHMAN WITHIN REACH.
--- NOTE | 2019-03-20 19:00 | NUR ---
PT RESTING IN BED, NO SIGNS OF DISTRESS NOTED, RESP EVEN AND UNLABORED. PT VERY ANXIOUS AND TEARFUL. ALERT AND ORIENTED TO SELF REQUIRES REORIENTATION TO SURROUNDINGS, PT THINKS TAKE AWAY MAN IS HER GRANDDAUGHTER. ATTEMPTED TO DISCUSS POC, PT VERY TEARFUL REQUESTING TAKE AWAY MAN SIT WITH PT. INFORMED PT THAT MD WILL RETURN IN AM AND UPON DISCHARGE WILL RETURN TO HER FAMILY. ASSESSMENT COMPLETED, CALL LIGHT IN REACH,CONTINUE TO MONITOR.
--- NOTE | 2019-03-20 19:20 | NUR ---
DAUGHTER AT BEDSIDE.
--- NOTE | 2019-03-21 | NUR ---
PT RESTING IN BED WITH EYES CLOSED, NO SIGNS OF DISTRESS NOTED RESP EVEN AND UNLABORED. CALL LIGHT IN REACH,CONTINUE TO MONITOR.
[2019-03-21 04:23] VITALS: BP 146/82
--- NOTE | 2019-03-21 08:15 | NUR ---
PT AWAKE SITTING IN CHAIR. PT IS ALERT AND ORIENTED X4. PT IS FORGETFUL. RESP EVEN AND UNLABORED. LUNGS CLEAR BILAT. ABD SOFT AND NONDISTENDED WITH BOWEL SOUNDS PRESENT. PT DOES HAVE +1 BILAT LOWER EXT EDEMA NOTED. PEDAL PULSES PALPATED BILAT. HEPLOCK PATENT IN RT A.C. PT DENIES ANY DISCOMFORT. PT WAS ASSISTED WITH BATHING. FREQUENT ROUNDS MADE. CALL RAHMAN WITHIN REACH.
[2019-03-21 08:40] VITALS: BP 152/88
--- NOTE | 2019-03-21 10:17 | NUR ---
PT WAS SEEN FOR GT. SHE WAS OOB WITH MODIFIED INDEP. SIT TO STAND WITH MIN A, SHE THEN HELD ONTO RW TO MAINTAIN STANDING POSITION. SHE AMBULATED IN A VERY SLOW PACE IN THE HALLWAY W/ RW AND SBA ~70 FT X 2. SHE WAS THEN ASSISTED TO THE RECLINER, LEG REST ELEVATED. CALL RAHMAN WITHIN REACH. NO ADVERSE RXNS NOTED OR REPORTED.
--- NOTE | 2019-03-21 10:30 | NUR ---
PT AMBULATED IN HALLWAY WITH PHYSICAL THERAPY.
[2019-03-21 11:07] VITALS: BP 135/73
--- NOTE | 2019-03-21 11:20 | NUR ---
PT RESTING IN BED. RESP EVEN AND UNLABORED. HEPLOCK PATENT. OFFERS NO COMPLAINTS. CALL RAHMAN WITHIN REACH.
--- NOTE | 2019-03-21 12:30 | NUR ---
RESTING IN BED. RESP EVEN AND UNLABORED. OFFES NO COMPLAINTS AT THIS TIME. PT TEARFUL AND KEEPS ASKING WHEN WILL THE DR BE IN. SUPPORT GIVEN. FREQUENT ROUNDS MADE. TELE SR. CALL RAHMAN WITHIN REACH.
--- NOTE | 2019-03-21 15:30 | NUR ---
DR RIDDLE IN TO SPEAK WITH PT REGARDING PLAN OF CARE. DR RIDDLE EXPLAINED TO PT SHE NEEDS TO STAY TILL SUNDAY TO RECEIVE HER DAILY IV ANTIBIOTIC. FAMILY AT BEDSIDE. THIS SCIENTIFIC AFFAIRS MANAGER CALLED HER DAUGHTER RAÚL TRUJILLO AND INFORMED HER PER DR RIDDLE PT NEEDS TO STAY THE WEEKEND AND RECEIVE HER IV ANTIBIOTIC. PLAN POSSIBLE D/C ON SUNDAY.
--- NOTE | 2019-03-21 17:30 | NUR ---
PTS DAUGHTER AT BEDSIDE. S/W PTS DAUGHTER REGARDING PT STAYING THE WEEKEND AND POSSIBLE D/C ON SUNDAY. PTS FAMILY AGREES THAT PT NEEDS TO STAY IN THE HOSPITAL OVER THE WEEKEND. PT IS FORGETFUL AND FREQUENTLY ASKS IF SHE IS GOING HOME TODAY EVEN AFTER DR RIDDLE EXPLAINED THOROUGHLY TO HER SHE WILL BE STAYING IN THE HOSP THIS WEEKEND. PT TEARFUL AT TIMES. SUPPORT GIVEN. ASSESSMENT UNCHANGED. FREQUENT ROUNDS MADE. CALL RAHMAN WITHIN REACH.
--- NOTE | 2019-03-21 19:00 | NUR ---
pt resting in bed with eyes closed no needs at this time. will continue to monitor.
[2019-03-21 19:37] VITALS: BP 149/85
--- NOTE | 2019-03-21 21:20 | NUR ---
PT AWAKE AT THIS TIME. C/O NOT BEING ABLE TO LIFT RIGHT ARM. PT LIFTS RIGHT ARM FINE AND HAS EQuAL PICKLE PUMPER. PT TEARFUL AND COMFORT MESURSE PROVIDE. INSTRUCTED TO CALL FOR ANY NEEDS. WILL CONTINUE TO MONITOR
--- NOTE | 2019-03-22 | NUR ---
PT RESTING IN BED. PERIODICALLY CALLS OUT FOR STAFF TO ASK FOR RESTROOM AND OTHER RANDOM QUESTIONS. NEEDS MET AT THIS TIME. CQGLORIA RAHMAN IN REACH. WILL CONTINUE TO MONITOR.
[2019-03-22 00:32] VITALS: BP 149/85
--- NOTE | 2019-03-22 04:00 | NUR ---
PT RESTING IN BED WITH EYES CLOSED. NO S/S OF DISTRESS NOTED CLL RAHMAN IN REACH. WILL CONTINUE TO MONITOR
[2019-03-22 05:42] VITALS: BP 131/82
[2019-03-22 07:33] VITALS: BP 142/75
--- NOTE | 2019-03-22 07:50 | NUR ---
PT ASSISTED FROM USING BSC TO RECLINER WITH WALKER. ALERT AND ORIENTED BUT FORGETFUL. PT IS ANXIOUS AT TIMES. RESP EVEN AND UNLABORED. LUNGS CLEAR BILAT. ABD SOFT WITH BOWEL SOUNDS PRESENT. PT DOES HAVE NONPITTING +1 BILAT LOWER EXT EDEMA NOTED. PEDAL PULSES PALPATED BILAT. HEPLOCK PATENT IN RT A.C. TELE SR . PT DENIES ANY DISCOMFORT AT THIS TIME. FREQUENT ROUNDS MADE. CALL RAHMAN WITHIN REACH.
--- NOTE | 2019-03-22 10:26 | NUR ---
PT RESTING IN RECLINER. VISITING AT BEDSIDE. RESP EVEN AND UNLABORED. OFFERS NO COMPLAINTS. CALL RAHMAN WITHIN REACH. FREQUENT ROUNDS MADE.
[2019-03-22 11:10] VITALS: BP 148/85
--- NOTE | 2019-03-22 12:16 | NUR ---
PT OOB IN RECLINER. RESP EVEN AND UNLABORED. OFFERS NO COMPLAINTS. CALL RAHMAN WITHIN REACH.
--- NOTE | 2019-03-22 16:30 | NUR ---
RESTING IN BED WITH EYES CLOSED. RESP EVEN AND UNLABORED. IV SITE PATENT. ASSESSMENT UNCHANGED. TELE SR. FREQUENT ROUNDS MADE. CALL RAHMAN WITHIN REACH.
--- NOTE | 2019-03-22 19:05 | NUR ---
REPORT FROM DENG GOMEZ. PT RESTING IN BED AT THIS TIME. NO DISTRESS NOTED. ALERT AND ORIENTED X2. IV SITE APPEARS HEALTHY, DISCUSSED IV SITE EXPIRATION AND EDUCATED ON NEW IV START, PT REFUSING AT THIS TIME. PT DENIES ANY PAIN OR DISCOMFORT. BLE ELEVATED ON PILLOWS. DISCUSSED POC. PT VERBALIZED UNDERSTANDNING. PT BECOMES TEARFUL EASILY, CALM REASSURANCE PROVIDED WITH EFFECT. CALL LIGHT WITHIN REACH. WILL CONTINUE TO MONITOR.
--- NOTE | 2019-03-22 20:02 | NUR ---
PT RIGHT KNEE PAIN, MEDICATED WITH PRN APAP.
[2019-03-22 20:10] VITALS: BP 146/92
--- NOTE | 2019-03-22 20:10 | NUR ---
ASSISTED PT TO BSC. PT VOIDED 200ML CLEAR YELLOW URINE AT THIS TIME. ASSISTED BACK TO BED AND REPOSITIONED ON RIGHT SIDE UPON REQUEST. ENCOURAGED PT TO ASSIST WITH REPOSITIONING WITH MINIMAL EFFECT. CALL LIGHT WITHIN REACH. WILL CONTINUE TO MONITOR.
--- NOTE | 2019-03-22 22:36 | NUR ---
PT ASSISTED TO BSC. PT VOIDED 250 ML CLEAR YELLOW URINE. ASSISTED BACK TO BED. CALL LIGHT WITHIN REACH. WILL CONTINUE TO MONITOR.
--- NOTE | 2019-03-23 00:15 | NUR ---
PT ASSISTED TO BSC. VOIDED 200ML CLEAR YELLOW URINE. EPISODE OF INCONTINENCE IN BRIEF GETTING UP TO COMMODE. NEW BRIEF APPLIED. ASSISTED BACK TO BED. PT REQUEST SOMETHING TO HELP WITH SLEEP. MEDICATED WITH PRN SONATA AT THIS TIME. CALL LIGHT WITHIN REACH. WILL CONTINUE TO MONITOR.
[2019-03-23 00:32] VITALS: BP 149/86
--- NOTE | 2019-03-23 02:31 | NUR ---
ASSISTED PT TO BSC. PT VOIDED 300ML CLEAR YELLOW URINE AT THIS TIME. ASSISTED BACK TO BED AND REPOSITIONED. PROVIDED ORAL LIQUIDS UPON REQUEST. CALL LIGHT WITHIN REACH. WILL CONTINUE TO MONITOR.
[2019-03-23 04:17] VITALS: BP 149/82
--- NOTE | 2019-03-23 04:17 | NUR ---
PT ASSISTED TO BSC. VOIDED 250ML CLEAR YELLOW URINE. EPISODE OF INCONTINENCE IN BRIEF GETTING UP TO COMMODE. NEW BRIEF APPLIED. ASSISTED BACK TO BED. VS OBTAINED AT THIS TIME. CALL LIGHT WITHIN REACH. WILL CONTINUE TO MONITOR.
[2019-03-23 08:20] VITALS: BP 129/79
--- NOTE | 2019-03-23 08:20 | NUR ---
PT AWAKE RESTING IN RECLINER. ALERT AND ORIENTED X3 BUT VERY FORGETFUL. PT FREQUENTLY ASKING THE SAME QUESTIONS. PLEASANT AND COOPERATIVE. ANXIOUS AT TIMES. RESP EVEN AND UNLABORED. LUNGS CLEAR BILAT. ABD SOFT AND NONDISTENDED WITH BOWEL SOUNDS PRESENT. +1 NONPITTING BILAT LOWER EXT EDEMA NOTED. PEDAL PULSES PALPATED BILAT. HEPLOCK PATENT IN RT A.C. NO REDNESS OR TENDERNESS AT SITE. TELE SR. PT DENIES ANY PAIN OR DISCOMFORT. FREQUENT ROUNDS MADE. CALL RAHMAN WITHIN REACH.
--- NOTE | 2019-03-23 09:54 | NUR ---
PT GETTING A SHOWER. ASSISTED BY KATHARINA.
[2019-03-23 11:29] VITALS: BP 132/80
--- NOTE | 2019-03-23 12:15 | NUR ---
DR GUAJARDO IN TO SPEAK WITH PT. PT RESTING IN RECLINER EATING LUNCH. OFFERS NO COMPLAINTS. FREQUENT ROUNDS MADE. CALL RAHMAN WITHIN REACH. TELE ST 102.
--- NOTE | 2019-03-23 14:44 | NUR ---
FAMILY VISITING AT BEDSIDE. RESP EVEN AND UNLABORED. NO DISTRESS NOTED. OFFERS NO COMPLAINTS. TELE INTACT. CALL RAHMAN WITHIN REACH.
[2019-03-23 15:40] VITALS: BP 144/75
--- NOTE | 2019-03-23 17:00 | NUR ---
PT AMBULATED IN ROOM WITH WALKER. PT DID HAVE A MODERATE BOWEL MOVEMENT TODAY. RESP EVEN AND UNLABORED. RESTING IN RECLINER. RESP EVEN AND UNLABORED. TELE SR. OFFERS NO COMPLAINTS. LEGS ARE ELEVATED IN THE RECLINER. CALL RAHMAN WITHIN REACH.
[2019-03-23 18:49] VITALS: BP 121/72
--- NOTE | 2019-03-23 20:25 | NUR ---
ASSESSMENT COMPLETED. PT. C/O RIGHT KNEE PAIN AND MEDICATED WITH ORDERED PRN TYLENOL AND SCHED MEDS. IV SITE OUT DATED AND REMOVED, CATHETER TIP INTACT. NEW IV STARTED TO RFA X1 ATTEMPT; PT. TOLERATED WELL. UPDATED ON POC. ENCOURAGED TO CALL FOR ANY NEEDS. CALL LIGHT IS IN REACH.
--- NOTE | 2019-03-23 23:05 | NUR ---
RESTING IN BED WITH NO DISTRESS NOTED; RESP. EVEN AND UNLABORED. CALL LIGHT IS IN REACH.
[2019-03-24 00:37] VITALS: BP 146/71
--- NOTE | 2019-03-24 01:15 | NUR ---
RESTING IN BED WITH EYES CLOSED; RESP. EVEN AND UNLABORED. CALL LIGHT IS IN REACH.
--- NOTE | 2019-03-24 03:20 | NUR ---
PT. ASSISTED TO USE THE BSC. IT IS VERY DIFFICULT FOR PT. TO GET OOB WITHOUT ASSISTANCE. PT. IS ENCOURAGED TO ATTEMPT MUCH SHE CAN SHE POSSIBLY IS GOING HOME TODAY. PT. PANTING AND IS VERY ANXIOUS ABOUT GETTING UP. WITH ASSISTANCE PT. IS THEN ABLE TO GET UP TO BSC AND BACK INTO BED. CALL LIGHT IS IN REACH.
[2019-03-24 05:13] VITALS: BP 136/80
--- NOTE | 2019-03-24 05:13 | NUR ---
VSS; NO DISTRESS NOTED; ASSISTED UP TO BSC AND BACK INTO BED. ENCOURAGED TO CALL FOR ANY NEEDS. CALL LIGHT IS IN REACH.
[2019-03-24 05:52] LABS: HEMATOCRIT 32.9 % (37.0-47.0); HEMOGLOBIN 10.4 g/dl (12.0-16.0); IMMATURE GRANULOCYTES 1.4 % (0.0-5.0); MEAN CELL VOLUME 95.4 fL CALC (80.0-100.0); MEAN CORPUSCULAR HGB 30.1 pG CALC (26.0-32.0); MEAN CORPUSCULAR HGB CONC 31.6 g/L CALC (32.0-36.0); NEUT# 2.23 thou/uL (2.00-7.15); RED BLOOD COUNT 3.45 mill/uL (4.20-5.60); RED CELL DISTRI WIDTH 14.1 % (11.5-15.5)
[2019-03-24 05:53] LABS: ANION GAP 9 (6-22 (CALC)); BUN 14 mg/dL (8-23); BUN/CREATININE RATIO 18 (12-20 (CALC)); CHLORIDE 108 mmol/l (95-108); CREATININE 0.8 mg/dL (0.5-1.0); GFR > 60 ML/MIN (>=60 (CALC)); GFR FOR AFR.AMER. > 60 ML/MIN (>=60 (CALC)); POTASSIUM 3.7 mmol/l (3.5-5.1); SODIUM 141 mmol/l (137-146)
[2019-03-24 06:25] LABS: CARBON DIOXIDE 28 mmol/l (22-30)
--- NOTE | 2019-03-24 07:00 | NUR ---
Received pt sitting on side of bed. Assessment complete, see shift review. Pt uses very whiney voice during conversations/at times tearful. Plan of care discussed. Pt not happy that she asked been asked to sit on the side of the bed or in the recliner, discussed benefits of getting out of the bed and moving around a bit. Pt not happy with breakfast tray, request scrambled eggs and warmer oatmeal, kitchen notified.
[2019-03-24 08:00] VITALS: BP 136/74
--- NOTE | 2019-03-24 09:00 | NUR ---
AM scheduled meds given, pt continues to be tearful at times. States it gets too lonely when no one is in the room with her. Asked if she had family she could call to come visit. Pt denies any needs. PHARMACY DATA ANALYST in room to assist to BSC.
--- NOTE | 2019-03-24 10:04 | NUR ---
Pt w/ call light on frequently, requested to be seen by the Dr. discussed rounding procedures. Pt denies any needs other than wishing to get back in to the bed and seeing the physician.
[2019-03-24 11:15] VITALS: BP 129/72
--- NOTE | 2019-03-24 11:16 | NUR ---
DR RIDDLE AT BEDSIDE. DISCUSSED DISCHARGE WITH PATIENT, ALSO CALLED DAUGHTER AND DISCUSSED PLAN WITH HER. PT AT BEDSIDE.
--- NOTE | 2019-03-24 11:23 | NUR ---
Physical Therapist attempted to see Mrs Wang today in room 291. Patient refused therapy today as she is due to leave to go home in an hours time and would like to rest before being picked up. Patient was left in room with bertin in reach.
[2019-03-24] MEDS ORDERED: VANTIN200 M1 PO (11:29)
--- NOTE | 2019-03-24 12:42 | NUR ---
PT SITTING IN CHAIR AT BEDSIDE, LUNCH TRAY PROVIDED.
--- NOTE | 2019-03-24 12:55 | NUR ---
PT ASSISTED BACK IN TO BED. PT AWAITING DAUGHTER FOR DISCHARGE.
--- NOTE | 2019-03-24 13:11 | NUR ---
DISCHARGE INSTRUCTIONS DISCUSSED WITH PATIENT INCLUDING ANTIBITOIC PRESCRIPTION AND FOLLOW UP WITHIN ONE WEEK INSTRUCTED BY DR RIDDLE. PT DENIES ANY QUESTIONS.
--- NOTE | 2019-03-24 13:22 | NUR ---
PT DISCHARGED VIA WHEELCHAIR IN STABLE CONDITION, DISCHARGE INSTRUCTIONS DISCUSSED WITH DAUGHTER, ALL BELONGINGS SENT.
== END 2019-03-24 13:22 | DRG 872 ==
LOC: ED 16:25 → ED-I 17:46 → ED 18:05 → MS2 18:06
PROVIDERS: Internal Medicine; ADMIT Internal Medicine; ATTEND Internal Medicine
DX: A41.51 Sepsis due to Escherichia coli [E. coli] (principal); N39.0 Urinary tract infection, site not specified; I10 Essential (primary) hypertension; I25.10 Atherosclerotic heart disease of native coronary artery without angina pectoris; E78.5 Hyperlipidemia, unspecified; M19.90 Unspecified osteoarthritis, unspecified site; Z86.73 Personal history of transient ischemic attack (TIA), and cerebral infarction without residual deficits
CPT/HCPCS: G0378

== ENCOUNTER 2019-04-15 22:03 | Inpatient (IN) | payer MEDICARE, MEDICAID ==
[~2019-04-15] VITALS: Ht 160 cm; Wt 82.6 kg
[~2019-04-15 22:03] MED LIST changes: +K-DUR/KLOR-CON20 MEQ PO; +MELOXICAM7.5 MG PO; +VANTIN200 M1 PO
--- NOTE | 2019-04-15 22:04 | NUR ---
BY EMS TO ROOM
--- NOTE | 2019-04-15 22:23 | NUR ---
XRAY AT BEDSIDE
--- NOTE | 2019-04-15 22:30 | NUR ---
PT RESTING. VSS. RIGHT SHOULDER AREA IS PURPLE/SWOLLEN. CSM + DISTALLY.
[2019-04-15] MEDS ORDERED: DULOXETINE HCL20 MG PO (22:37)
--- NOTE | 2019-04-15 23:45 | NUR ---
AT BEDSIDE TO DISCUSS RESULTS OF TESTS WITH PT AND FAMILY.
[2019-04-15 23:53] LABS: HEMATOCRIT 35.2 % (37.0-47.0); IMMATURE GRANULOCYTES 0.5 % (0.0-5.0); MEAN CELL VOLUME 97.2 fL CALC (80.0-100.0); MEAN CORPUSCULAR HGB 30.4 pG CALC (26.0-32.0); MEAN CORPUSCULAR HGB CONC 31.3 g/L CALC (32.0-36.0); NEUT# 7.48 thou/uL (2.00-7.15); RED BLOOD COUNT 3.62 mill/uL (4.20-5.60); RED CELL DISTRI WIDTH 14.7 % (11.5-15.5)
[2019-04-16 00:10] LABS: ALBUMIN 3.5 g/dL (3.2-5.0); ALKALINE PHOSPHATASE 90 u/l (38-126); ANION GAP 11 (6-22 (CALC)); BUN 26 mg/dL (8-23); BUN/CREATININE RATIO 27 (12-20 (CALC)); CARBON DIOXIDE 23 mmol/l (22-30); CHLORIDE 113 mmol/l (95-108); GFR 53 ML/MIN (>=60 (CALC)); GFR FOR AFR.AMER. > 60 ML/MIN (>=60 (CALC)); SGOT/AST 17 u/l (9-36); SODIUM 143 mmol/l (137-146); TOTAL PROTEIN 7.1 g/dL (6.3-8.2)
[2019-04-16 00:11] LABS: BILIRUBIN, TOTAL 0.8 mg/dL (0.0-1.4)
[2019-04-16 00:25] LABS: ACT PARTIAL THROMBO TIME 25.7 SECONDS (20.0-32.5); PROTHROMBIN TIME 10.7 SECONDS (9.0-12.5)
--- NOTE | 2019-04-16 01:30 | NUR ---
PT NIGHT GOWN CUT IN ORDER TO REMOVE. OK TO CUT OFF PER DAUGHTER.
--- NOTE | 2019-04-16 01:36 | NUR ---
PT VOIDED ON BEDPAN. DARK LUIS URINE. SAMPLE TO LAB.
--- NOTE | 2019-04-16 01:51 | NUR ---
REPORT TO DENISSE
--- NOTE | 2019-04-16 02:00 | NUR ---
SPOKE WITH ABOUT PAIN MED...PT CAN TAKE LORTAB. SLING SENT TO FLOOR WITH PT PT WILL NOT NEED IT WHILE IN BED.
--- NOTE | 2019-04-16 02:05 | NUR ---
TO FLOOR VIA STRETCHER WITH NURSING MISSILE INSPECTOR PREFLIGHT. FAMILY AT SIDE. SLING WITH PT. CSM + TO HAND.
[2019-04-16 02:11] LABS: URINE BILIRUBIN - DIPSTICK NEGATIVE (NEGATIVE); URINE BLOOD DIPSTICK NEGATIVE (NEGATIVE); URINE COLOR YELLOW; URINE GLUCOSE - DIPSTICK NEGATIVE (NEGATIVE); URINE KETONE NEGATIVE (NEGATIVE); URINE LEUK ESTERASE NEGATIVE (NEGATIVE); URINE PH 5.5 (4.5-8.0); URINE PROTEIN - DIPSTICK NEGATIVE (NEG-TRACE); URINE SPECIFIC GRAVITY 1.025
[2019-04-16 02:15] LABS: URINE NITRITE - DIPSTICK POSITIVE (Negative)
[2019-04-16 02:17] LABS: URINE RBC 0-2 RBC/hpf (0-5)
[2019-04-16 02:18] LABS: URINE BACTERIA MANY hpf; URINE SQUAMOUS EPITHELIAL CELL FEW EPI/hpf (0-FEW); URINE TRANSITIONAL EPI. CELLS FEW hpf
[2019-04-16 02:27] VITALS: BP 143/79
--- NOTE | 2019-04-16 03:13 | NUR ---
PATIENT ADMITTED FROM ER VIA STRETCHER WITH NSG SUP IN ATTENDANCE. PATIENT IS MAX ASSIST TO TRANSFER FROM STRECHER TO BED. PATIENT IS AWAKE ALERT AND ORIENTEDX3. TEARFUL FROM PAIN TO RIGHT SHOULDER-PATIENT WITH FX RIGHT HUMERUS. RIGHT SHOULDER WITH LARGE ECCYMOTIC AREA-PHOTO TAKEN AND PLACED IN CHART. PATIENT WITH IV SITE TO LEFT FOREARM INTACT-IVF D51/2NS 20KCL HUNG ORDERED AT 125CC/HR. SITE IS HEALTHY. PATIENT WITH HX OF CVA WITH RIGHT SIDE WEAKNESS. RIGHT FACIAL DROOP NOTED. PATIENT MEDICATED WITH LORTAB 5/325MG PO FOR PAIN WITH SIP OF H2O. PATIENT IS NPO AT THIS TIME. PATIENT STATES THAT SHE LIVES WITH HER AND DAUGHTER RAÚL. PATIENT ORIENTED TO ROOM AND SURROUNDINGS. INSTRUCTED PATIENT ON USE OF NURSE CALL LIGHT SYSTEM, TV REMOTE AND PHONE. SAFETY PRECAUTIONS REINFORCED. CALL LIGHT IN REACH. WILL CONT TO MONITOR.
--- NOTE | 2019-04-16 05:30 | NUR ---
PATIENT RESTING IN BED-STATES THAT HER RIGHT SHOULDER IS LESS PAINFUL AT THIS TIME. LAB WORK IS BEING DONE AT BEDSIDE. IVF PATENT AND INFUSING VIA LEFT FOREARM SITE. SAFETY PRECAUTIONS REINFORCED. CALL LIGHT IN REACH. WILL CONT TO MONITOR.
[2019-04-16 08:29] VITALS: BP 171/81
--- NOTE | 2019-04-16 08:33 | NUR ---
REPORT WAS RECEIVED FROM DENISSE. ASSESSMENT DONE. PATIENT IS A&O X3. DR. CASTILLO AT BEDSIDE TO ASSESS PATIENT. NOTIIFED RE: BP 171/81 BUT PATIENT HAS PAIN 8/10 IN RIGHT SHOULDER. MEDICATED PATIENT WITH LORTAB. IVF INFUSING WELL. SLING APPLIED TO RIGHT SHOULDER. ORDERS RECEIVED FROM MD FOR PATIENT TO EAT. SAFETY PRECAUTIONS REINFORCED AND CALL LIGHT IN REACH.
[2019-04-16 10:24] VITALS: BP 158/68
--- NOTE | 2019-04-16 11:59 | NUR ---
PATIENT IS SITTING IN RECLINER EATING HER LUNCH AND VISITING WITH FAMILY. PATIENT DENIES NEEDS AT THIS TIME. CALL LIGHT IN REACH.
[2019-04-16 15:36] VITALS: BP 138/67
--- NOTE | 2019-04-16 16:30 | NUR ---
PATIENT IS SLEEPING IN BED WITH NO S/S OF DISTRESS NOTED. RIGHT ARM SLING IN PLACE. CALL LIGHT IN REACH.
[2019-04-16 19:37] VITALS: BP 168/88
--- NOTE | 2019-04-16 20:05 | NUR ---
ASSESSMENT COMPLETED. NEW IV SITE STARTED TO LEFT WRIST X1 ATTEMPT AND PT. TOLERATED WELL. EMS SITE REMOVED AND CATHETER TIP INTACT. BRUISING NOTED TO RIGHT ARM AND IN SLING AT; PULSES PRESENT TO ALL EXTREMETIES. C/O RIGHT SHOULDER AND RIGHT CHRONIC KNEE PAIN AND MEDICATED WITH ORDERED PRN LORTAB; WILL REASSESS. PO FLUIDS OFFERED. ENCOURAGED TO CALL FOR ANY NEEDS. UPDATED ON POC. CALL LIGHT IS IN REACH. WILL CONTINUE TO MONITOR.
[2019-04-16 23:42] VITALS: BP 159/87
--- NOTE | 2019-04-17 00:03 | NUR ---
PT. ASSISTED A MAX ASSIST TO BSC AND BACK INTO BED. PT. IS VERY WEAK AND HARD TO RE-DIRECT AT TIMES WITH MOBILITY QUES. PT. IS ENCOURAGED TO SPEAK WITH CASE MANAGEMENT IN REGARDS TO POST DISCHARGE AND VERBALIZES UNDERSTANDING. PT. C/O RIGHT SHOULDER AND RIGHT KNEE PAIN 03/22 AND MEDICATED WITH ORDERED LORTAB, WILL REASSESS. JUICE PROVIDED. CALL LIGHT IS IN REACH.
--- NOTE | 2019-04-17 02:12 | NUR ---
RESTING IN BED WITH EYES CLOSED; RESP. EVEN AND UNLABORED. CALL LIGHT IS IN REACH.
[2019-04-17 04:03] VITALS: BP 158/69
--- NOTE | 2019-04-17 04:20 | NUR ---
PT. C/O RIGHT SHOULDER AND RIGHT KNEE PAIN 03/22 AND MEDICATED WITH ORDERED LORTAB, WILL REASSESS. SNACK PROVIDED. CALL LIGHT IS IN REACH.
[2019-04-17 05:12] LABS: ANION GAP 10 (6-22 (CALC)); BUN 19 mg/dL (8-23); BUN/CREATININE RATIO 29 (12-20 (CALC)); CARBON DIOXIDE 23 mmol/l (22-30); CHLORIDE 109 mmol/l (95-108); CREATININE 0.7 mg/dL (0.5-1.0); GFR > 60 ML/MIN (>=60 (CALC)); GFR FOR AFR.AMER. > 60 ML/MIN (>=60 (CALC)); POTASSIUM 4.8 mmol/l (3.5-5.1); SODIUM 136 mmol/l (137-146)
[2019-04-17 05:14] LABS: HEMATOCRIT 32.5 % (37.0-47.0); HEMOGLOBIN 10.3 g/dl (12.0-16.0); MEAN CELL VOLUME 97.3 fL CALC (80.0-100.0); MEAN CORPUSCULAR HGB 30.8 pG CALC (26.0-32.0); MEAN CORPUSCULAR HGB CONC 31.7 g/L CALC (32.0-36.0); RED BLOOD COUNT 3.34 mill/uL (4.20-5.60); RED CELL DISTRI WIDTH 14.8 % (11.5-15.5)
--- NOTE | 2019-04-17 07:28 | NUR ---
REPORT RECEIVED FROM PATRICIA DOZIER. PT SUPINE IN BED. DENIES PAIN. REPORTING OF CONCERNS ENCOURAGED. FALL PRECAUTIONS REINFORCED. PLAN OF CARE DISCUSSED. CALL LIGHT REVIEWED AND IN REACH. PT STATES UNDERSTANDING.
[2019-04-17 08:24] VITALS: BP 125/55
--- NOTE | 2019-04-17 10:51 | NUR ---
DR. CASTILLO IN TO SEE PT. PLAN OF CARE DISCUSSED. CALL PLACED TO PT'S DAUGHTER RAÚL, DR. CASTILLO UPDATED HER ON PLAN OF CARE.
--- NOTE | 2019-04-17 14:30 | NUR ---
EULOGIO, PHYSICAL THERAPIST AT BEDSIDE FOR EVAL AND TREAT.
[2019-04-17 15:02] VITALS: BP 135/67
--- NOTE | 2019-04-17 16:52 | NUR ---
PT. SLEEPING AT THIS TIME. CALL LIGHT WITHIN REACH. APPEARS COMFORTABLE.
[2019-04-17 20:25] VITALS: BP 149/84
--- NOTE | 2019-04-17 20:30 | NUR ---
PT RESTING IN BED, CALLING OUT. PT ALERT AND ORIENTED X3, PT IS TEARFUL. ASSISTED PT TO BSC X2 ASSIST. PT TEARFUL STATES SHE'S "GOING TO ". RE-ENCOURAGED PT WITH POC, INFORMED HER THAT SHE IS STABLE, IF SHE IS IN PAIN SKID WORKER CAN MEDICATE HER. PT DOES USING R ARM OUT OF SLING TO GET OUT OF BED, SLING READJUSTED AND ELEVATED IN SLING. PT MEDICATED FOR PAIN, ASSESSMENT COMPLETED, BED ALARM FOR SAFETY, CALL LIGHT IN REACH,CONTINUE TO MONITOR.
[2019-04-17 23:41] VITALS: BP 154/84
--- NOTE | 2019-04-18 | NUR ---
PT RESTING IN BED WITH EYES CLOSED, NO SIGNS OF DISTRESS NOTED, RESP EVEN AND UNLABORED. CALL LIGHT IN REACH,CONTINUE TO MONITOR. BED ALARM FOR SAFETY.
[2019-04-18 03:35] VITALS: BP 155/80
--- NOTE | 2019-04-18 06:15 | NUR ---
PT RESTING IN BED, ASSISTED BY [employer] TO BE CLEANED UP, PT STATES SHE URINATED IN THE BED. CALL LIGHT IN REACH,CONTINUE TO MONITOR.
[2019-04-18 08:51] VITALS: BP 141/68
--- NOTE | 2019-04-18 08:53 | NUR ---
PT IS SITTING IN RECLINER. ASSESSMENT DONE. PT IS A&OX 2 BUT FORGETFUL AT TIMES. IVF INFSUING WELL. RIGHT ARM IN SLING . RIGHT ARM BRUISE. PT STATED PAIN IN ARM 8/10. MEDICATED PT WITH LORTAB. SAFETY PRECAUTIONS REINFORCED AND CALL LIGHT IN REACH.
--- NOTE | 2019-04-18 10:15 | NUR ---
Pt was seen for gait training. She was seen sitting in the [facility] with Scarlett in the room. Ms. Delgado expressed her fear and anxiety after she fell at home. She required max a of 2 to stand up from commode, with constant verbal cues. Noted R LE ER with toes pointing out as pt continues to drag R foot during ambulation. Therapist offered both verbal and tactile corrections, however pt was unable to correct. She ambulated from commode to the other side of the bed with significantly slow pace with RW, therpist on the R side to assist in maneuvering the walker. She then sat down in the recliner with uncontrolled descent. Based on patient's performance of activities today and hx of falls, she will be unsafe for independent living and may benefit from LTAC or in-patient rehab upon discharge. Balance and gait training is strongly indicated. Left pt comfortably sitting in the recliner with leg elevated, call copeland on her lap. Instructed to let the nurses know when she wants to transfer back to bed.
[2019-04-18 11:00] VITALS: BP 164/77
--- NOTE | 2019-04-18 12:45 | NUR ---
PT IS SITTING IN RECLINER. MEDICATED PT WITH LORTAB FOR PAIN IN RIGHT ARM SEE EMAR. PT DENIES ANY OTHER NEEDS AT THIS TIME. CALL LIGHT IN REACH.
--- NOTE | 2019-04-18 16:00 | NUR ---
PT IS RESTING IN BED WITH NO S/S OF DISTRESS NOTED. PT DENIES NEEDS AT THIS TIME. CALL LIGHT IN REACH.
[2019-04-18 16:19] VITALS: BP 145/82
[2019-04-18 18:52] VITALS: BP 142/71
--- NOTE | 2019-04-18 19:00 | NUR ---
RECIEVED REPORT FROM DAY NURSE. PT RESTING IN BED WITH EYES CLOSED. NO NEEDS AT THIS TIME. CALL RAHMAN IN REACH. WILL CONTINUE TO MONITOR.
--- NOTE | 2019-04-18 20:30 | NUR ---
PT UP TO BSC WITH 2 PERSON ASSIST, SLING IN PLACE. PT CRYING AND SAYING SHE CANT WALK. PT IS WALKING AND ABLE TO WALK TOWARDS THE HOB. PT STILL TEARFUL. COMFORT MEASURSES PROVIDED. NO OTHER NEEDS AT THIS TIME. WILL CONTINUE TO MONITOR.
--- NOTE | 2019-04-18 20:45 | NUR ---
PT RESTING IN BED WITH EYES CLOSED. PT C/O 02/19 PAIN TO ARM. ASSESMENT COMPLETED AT THIS TIME. PT RESUMES CRYING. COMFORT MEASURES PROVIDED. IV INFUSING WELL. SLING IN PLACE. NO NEEDS AT THIS TIME. WILL CONTINUE TO MONITOR.
--- NOTE | 2019-04-19 | NUR ---
PT RESTING IN BED WITH EYES CLOSED. SLING IN PLACE. NO S/S OF DISTRESS NOTED. BED ALARM ON. CALL RAHMAN IN REACH. WILL CONTINUE TO MONIRTOR.
--- NOTE | 2019-04-19 04:00 | NUR ---
PT GIVEN BED BATH AT THIS TIME. INCOT OF CLEAR YELLOW URINE. LINENS CHANGED, SLING ON. PT NEEDS MET. WILL CONTINUE TO MONITOR.
[2019-04-19 05:43] LABS: HEMATOCRIT 33.4 % (37.0-47.0); HEMOGLOBIN 10.5 g/dl (12.0-16.0); MEAN CELL VOLUME 96.8 fL CALC (80.0-100.0); MEAN CORPUSCULAR HGB 30.4 pG CALC (26.0-32.0); MEAN CORPUSCULAR HGB CONC 31.4 g/L CALC (32.0-36.0); RED BLOOD COUNT 3.45 mill/uL (4.20-5.60); RED CELL DISTRI WIDTH 14.6 % (11.5-15.5)
[2019-04-19 06:03] LABS: ANION GAP 11 (6-22 (CALC)); BUN 13 mg/dL (8-23); BUN/CREATININE RATIO 21 (12-20 (CALC)); CARBON DIOXIDE 26 mmol/l (22-30); CHLORIDE 104 mmol/l (95-108); CREATININE 0.6 mg/dL (0.5-1.0); GFR > 60 ML/MIN (>=60 (CALC)); GFR FOR AFR.AMER. > 60 ML/MIN (>=60 (CALC)); POTASSIUM 4.8 mmol/l (3.5-5.1); SODIUM 136 mmol/l (137-146)
--- NOTE | 2019-04-19 07:15 | NUR ---
PT C/O PAIN MEDICATED PER ORDER 03/22
--- NOTE | 2019-04-19 08:05 | NUR ---
PT SITTING IN RECLINER EATING BREAKFAST, NO SIGNS OF DISTRESS NOTED, RESP EVEN AND UNLABORED. PT ALERT BUT SOME CONFUSION. PT FORGETS SHE IS AT THE HOSPITAL, DISCUSSED POC, PT VERBALIZED UNDERSTANDING. EATING BREAKFAST WELL. PT MEDICATED PER OCT. R ARM IS NOT IN SLING OR ELEVATED. NOTED EDEMA AND BRUISING TO R ARM. SLING REAPPLIED AND ENCOURAGED ELEVATION. CALL LIGHT IN REACH,CONTINUE TO MONITOR.
[2019-04-19 08:08] VITALS: BP 131/76
[2019-04-19 08:39] VITALS: BP 131/76
--- NOTE | 2019-04-19 10:17 | NUR ---
PT SITTING IN RECLINER YELLING OUT, PT ANXIOUS AND TEARFUL. PT ATTEMPTING TO REMOVE SLING, ENCOURAGED ELEVATION TO HELP DECREASE SWELLING. PILLOW PLACE UNDER R ARM. CALL LIGHT IN REACH,CONTINUE TO MONITOR.
--- NOTE | 2019-04-19 11:45 | NUR ---
MD IN TO SEE PT AND DISCUSS PLANS FOR DISCHARGE PT CONTINUES TO YELL OUT, PT BECOMES TEARFUL WHEN SPEAKING TO HER. CALL LIGHT IN REACH,CONTINUE TO MONITOR.
[2019-04-19] MEDS ORDERED: LORTAB 5/3255 MG PO (11:50)
--- NOTE | 2019-04-19 12:30 | NUR ---
DISCUSSED DISCHARGE WITH PT AND DAUGHTER. DAUGHTER BROUGHT IN PTS BELONGINGS TO TAKE TO REHAB.
--- NOTE | 2019-04-19 13:21 | NUR ---
PT SITTING IN RECLINER DRESSED AND READY FOR TRANPORT. NO SIGNS OF DISTRESS NOTED, CONTINUE TO MONITOR
--- NOTE | 2019-04-19 13:45 | NUR ---
Discharge instructions given. Patient verbalizes understanding of same. Discharged in stable condition via Wheelchair to [facility] with staff. All belongings sent with pt.
== END 2019-04-19 13:25 | DRG 563 ==
LOC: ED 22:03 → MS2 04-16 01:08
PROVIDERS: ADMIT Internal Medicine; ATTEND Internal Medicine
DX: S42.294A Other nondisplaced fracture of upper end of right humerus, initial encounter for closed fracture (principal); N39.0 Urinary tract infection, site not specified; I69.351 Hemiplegia and hemiparesis following cerebral infarction affecting right dominant side; I10 Essential (primary) hypertension; I25.10 Atherosclerotic heart disease of native coronary artery without angina pectoris; E78.5 Hyperlipidemia, unspecified; R53.1 Weakness; M25.561 Pain in right knee; F32.9 Major depressive disorder, single episode, unspecified; B96.20 Unspecified Escherichia coli [E. coli] as the cause of diseases classified elsewhere; W06.XXXA Fall from bed, initial encounter; Y92.003 Bedroom of unspecified non-institutional (private) residence as the place of occurrence of the external cause; Z87.440 Personal history of urinary (tract) infections; Z86.19 Personal history of other infectious and parasitic diseases
CPT/HCPCS: J1650

== ENCOUNTER 2022-01-08 15:31 | Observation (INO) | payer MEDICARE, OTHER ==
[~2022-01-08] VITALS: Ht 7.6 cm; Wt 104.0 kg
[2022-01-08] VITALS (19 sets, daily range): BP systolic 92–169; BP diastolic 70–107
[~2022-01-08 15:31] MED LIST changes: +CEFPODOXIME PR100 MG PO; +CYMBALTA30 MG PO; +DULOXETINE HCL20 MG PO; +HYDROCO/APAP1 T11 PO; +LORTAB 5/3255 MG PO
[2022-01-08 16:51] LABS: HEMATOCRIT 37.6 % (37.0-47.0); HEMOGLOBIN 11.9 g/dl (12.0-16.0); IMMATURE GRANULOCYTES 0.2 % (0.0-5.0); MEAN CELL VOLUME 97.9 fL CALC (80.0-100.0); MEAN CORPUSCULAR HGB CONC 31.6 g/dL CAL (32.0-36.0); NEUT# 3.75 thou/uL (2.00-7.15); RED BLOOD COUNT 3.84 mill/uL (4.20-5.60); RED CELL DISTRI WIDTH 12.8 % (11.5-15.5)
[2022-01-08 17:13] LABS: ALBUMIN 3.6 g/dL (3.2-5.0); ALKALINE PHOSPHATASE 94 u/l (38-126); ANION GAP 12 (6-22 (CALC)); BUN 18 mg/dL (8-23); BUN/CREATININE RATIO 20 (12-20 (CALC)); CARBON DIOXIDE 29 mmol/l (22-30); CHLORIDE 104 mmol/l (95-108); CREATININE 0.9 mg/dL (0.5-1.0); GFR FOR AFR.AMER. > 60 ML/MIN (>=60 (CALC)); GFR OTHER RACES 59 ML/MIN (>=60 (CALC)); LIPASE 225 u/l (23-300); POTASSIUM 4.1 mmol/l (3.5-5.1); SGOT/AST 20 u/l (9-36); SODIUM 141 mmol/l (137-146); TOTAL PROTEIN 7.4 g/dL (6.3-8.2)
[2022-01-08 17:14] LABS: ACT PARTIAL THROMBO TIME 27.8 SECONDS (20.0-32.5); BILIRUBIN, TOTAL 0.3 mg/dL (0.0-1.4)
[2022-01-08] MEDS ORDERED: ARICEPT10 MG PO (19:41)
[2022-01-08] MEDS ORDERED: LASIX 20 MG TAB20 MG PO (19:42)
[2022-01-08] MEDS ORDERED: LORATADINE10 M3 PO (19:43)
[2022-01-08] MEDS ORDERED: LOSARTAN POTASS50 MG PO (19:43)
[2022-01-08] MEDS ORDERED: PAXIL30 MG PO (19:44)
[2022-01-08] MEDS ORDERED: NAMENDA1 TAB PO (19:44)
[2022-01-08] MEDS ORDERED: TRAZODONE100 MG PO (19:45)
[2022-01-09 00:02] VITALS: BP 182/78
[2022-01-09 00:12] VITALS: BP 160/82
[2022-01-09 03:51] VITALS: BP 148/88
[2022-01-09 05:46] LABS: HEMATOCRIT 35.3 % (37.0-47.0); HEMOGLOBIN 11.1 g/dl (12.0-16.0); MEAN CELL VOLUME 99.7 fL CALC (80.0-100.0); MEAN CORPUSCULAR HGB 31.4 pG CALC (26.0-32.0); MEAN CORPUSCULAR HGB CONC 31.4 g/dL CAL (32.0-36.0); RED BLOOD COUNT 3.54 mill/uL (4.20-5.60); RED CELL DISTRI WIDTH 12.9 % (11.5-15.5)
[2022-01-09 06:06] LABS: ANION GAP 13 (6-22 (CALC)); BUN 14 mg/dL (8-23); BUN/CREATININE RATIO 19 (12-20 (CALC)); CARBON DIOXIDE 27 mmol/l (22-30); CHLORIDE 107 mmol/l (95-108); CREATININE 0.8 mg/dL (0.5-1.0); GFR FOR AFR.AMER. > 60 ML/MIN (>=60 (CALC)); GFR OTHER RACES > 60 ML/MIN (>=60 (CALC)); POTASSIUM 4.2 mmol/l (3.5-5.1); SODIUM 142 mmol/l (137-146)
[2022-01-09 06:43] VITALS: BP 146/82
[2022-01-09 08:13] VITALS: BP 146/82
[2022-01-09] MEDS ORDERED: PROTONIX40 MG PO (10:26)
== END 2022-01-09 11:00 ==
LOC: ED 15:31 → MS2 18:35
PROVIDERS: ADMIT Hospitalist; ATTEND Hospitalist
DX: K92.1 Melena (principal); I10 Essential (primary) hypertension; I25.10 Atherosclerotic heart disease of native coronary artery without angina pectoris; F03.90 Unspecified dementia, unspecified severity, without behavioral disturbance, psychotic disturbance, mood disturbance, and anxiety; E78.5 Hyperlipidemia, unspecified; Z86.73 Personal history of transient ischemic attack (TIA), and cerebral infarction without residual deficits; Z79.82 Long term (current) use of aspirin
CPT/HCPCS: G0378; Q9967; S0164

== ENCOUNTER 2023-08-14 14:41 | Emergency (ER) | payer MEDICARE, OTHER ==
[2023-08-14] VITALS (28 sets, daily range): BP systolic 46–137; BP diastolic 27–114
[~2023-08-14] VITALS: Ht 160 cm; Wt 132.0 kg
[~2023-08-14 14:41] MED LIST changes: +ARICEPT10 MG PO; +LASIX 20 MG TAB20 MG PO; +LORATADINE10 M3 PO; +LOSARTAN POTASS50 MG PO; +NAMENDA1 TAB PO; +PAXIL30 MG PO; +PROTONIX40 MG PO; +TRAZODONE100 MG PO
[2023-08-14 15:13] LABS: BASO% 0.1 % (0-3); HEMOGLOBIN 11.8 g/dl (12.0-16.0); IMMATURE GRANULOCYTES 0.4 % (0.0-5.0); LYMPH% 5.7 % (15-41); MEAN CORPUSCULAR HGB 28.1 pG CALC (26.0-32.0); MEAN CORPUSCULAR HGB CONC 30.3 g/dL CAL (32.0-36.0); MONO% 5.3 % (2-13); NEUT# 16.33 thou/uL (2.00-7.15); NEUT% 88.5 % (42-76); RED BLOOD COUNT 4.2 mill/uL (4.20-5.60); RED CELL DISTRI WIDTH 15.5 % (11.5-15.5)
[2023-08-14 15:23] LABS: MEAN CELL VOLUME 92.9 fL CALC (80.0-100.0)
[2023-08-14 15:29] LABS: POTASSIUM 3.6 mmol/l (3.5-5.1); TOTAL PROTEIN 6.3 g/dL (6.3-8.2)
[2023-08-14 15:31] LABS: ALBUMIN 2.7 g/dL (3.2-5.0); BILIRUBIN, TOTAL 0.7 mg/dL (0.02-1.3); CREATININE 3.9 mg/dL (0.5-1.0)
[2023-08-14 17:32] LABS: URINE BLOOD DIPSTICK Moderate (NEGATIVE); URINE GLUCOSE - DIPSTICK Negative (NEGATIVE); URINE KETONE Trace mg/dL (NEGATIVE); URINE NITRITE - DIPSTICK Negative (Negative); URINE PROTEIN - DIPSTICK 100 mg/dL (NEG-TRACE); URINE UROBILINOGEN - DIPSTICK 0.2 E.U./dL (0.2)
[2023-08-14 17:33] LABS: URINE COLOR Yellow; URINE LEUK ESTERASE Moderate (NEGATIVE)
[2023-08-14 17:46] LABS: URINE BACTERIA FEW hpf; URINE SQUAMOUS EPITHELIAL CELL MANY EPI/hpf (0-FEW); URINE WBC 20-50 WBC/hpf (0-5)
== END 2023-08-14 21:38 | disposition short-term general hospital (02) ==
LOC: ED 14:41 → ED-I 16:35 → ED 21:38
PROVIDERS: Family Medicine
PROC: 05HM33Z Insertion of Infusion Device into Right Internal Jugular Vein, Percutaneous Approach (ICD-10-PCS; principal; 2023-08-14)
PROC: 3E043XZ Introduction of Vasopressor into Central Vein, Percutaneous Approach (ICD-10-PCS; 2023-08-14)
DX: A41.9 Sepsis, unspecified organism (principal); R65.21 Severe sepsis with septic shock; K81.0 Acute cholecystitis; N39.0 Urinary tract infection, site not specified; B96.20 Unspecified Escherichia coli [E. coli] as the cause of diseases classified elsewhere; I11.0 Hypertensive heart disease with heart failure; I50.9 Heart failure, unspecified; I48.91 Unspecified atrial fibrillation; Z86.73 Personal history of transient ischemic attack (TIA), and cerebral infarction without residual deficits; Z20.822 Contact with and (suspected) exposure to COVID-19
CPT/HCPCS: J1650